=== PATIENT | female | born 1950 | race Caucasian/White ===

== ENCOUNTER 2017-01-05 08:10 | Emergency (ER) | payer OTHER ==
--- NOTE | 2017-01-05 08:43 | Emergency Department Record ---
History of Present Illness - General Chief complaint: Pain Stated complaint: RIGHT PAIN BELOW RIBS Time Seen by Provider: 01/05/17 08:28 Source: Patient Mode of Arrival: Ambulatory Limitations: No limitations - History of Present Illness Initial comments: pt awoke w ruq pain that is easing up MD Complaint: Abdominal Pain Onset/Timin -: Hour(s) Location: Right History of Same: No Quality: Stabbing Consistency: Constant Improves with: Nothing Worsens with: Exertion, Rest, Other Associated Symptoms: Other - Related Data Home Medications Medication Instructions Recorded Confirmed Last Taken Albuterol Sulfate [Proair Hfa] 1 - 2 puff IH .EVERY 4-6 HOURS PRN 01/05/1701/0501/04/17 Budesonide/Formoterol Fumarate 10.2 gm IH BID 01/05/17 01/05/17 01/04/17 [Symbicort 80-4.5 Mcg Inhaler] Lovastatin 20 mg PO DAILY 01/05/17 01/05/17 01/04/17 Allergies Allergy/AdvReac Type Severity Reaction Status Date / Time No Known Drug Allergies Allergy Verified 01/05/17 08:24 Travel Screening - Travel/Exposure Within Last 30 Days Have you traveled within the last 30 days?: No - Travel/Exposure Within Last Year Have you traveled outside the [place] in the last year?: No - Additonal Travel Details Have you been exposed to anyone with a communicable illness?: No - Travel Symptoms Symptom Screening: None Review of Systems Reviewed: No additional complaints except as noted below Constitutional: Reports: As per HPI. Denies: Chills, Fever, Malaise, Night sweats, Weakness, Weight change Eyes: Reports: As per HPI. Denies: Eye discharge, Eye pain, Photophobia, Vision change ENT: Reports: As per HPI. Denies: Congestion, Dental pain, Ear pain, Epistaxis , Hearing loss, Throat pain Respiratory: Reports: As per HPI. Denies: Cough, Dyspnea, Hemoptysis, Stridor, Wheezes Cardiovascular: Reports: As per HPI. Denies: Arrhythmia, Chest pain, Dyspnea on exertion, Edema, Murmurs, Orthopnea, Palpitations, Paroxysmal nocturnal dyspnea, Rheumatic Fever, Syncope Endocrine: Reports: As per HPI. Denies: Fatigue, Heat or cold intolerance, Polydipsia, Polyuria Gastrointestinal: Reports: As per HPI. Denies: Abdominal pain, Constipation, Diarrhea, Hematemesis, Hematochezia, Melena, Nausea, Vomiting Genitourinary: Reports: As per HPI. Denies: Abnormal menses, Discharge, Dyspareunia, Dysuria, Frequency, Hematuria, Incontinence, Retention, Urgency Musculoskeletal: Reports: As per HPI. Denies: Arthralgia, Back pain, Gout, Joint swelling, Myalgia, Neck pain Skin: Reports: As per HPI. Denies: Bruising, Change in color, Change in hair/ nails, Lesions, Pruritus, Rash Neurological: Reports: As per HPI. Denies: Abnormal gait, Confusion, Headache, Numbness, Paresthesias, Seizure, Tingling, Tremors, Vertigo, Weakness Psychiatric: Reports: As per HPI. Denies: Anxiety, Auditory hallucinations, Depression, Homicidal thoughts, Suicidal thoughts, Visual hallucinations Hematological/Lymphatic: Reports: As per HPI. Denies: Anemia, Blood Clots, Easy bleeding, Easy bruising, Swollen glands Past Medical History - SOCIAL HISTORY Smoking Status: Current every day smoker Alcohol Use: None Drug Use: None - RESPIRATORY Hx Respiratory Disorders: Yes Hx COPD: Yes - CARDIOVASCULAR Hx Cardio Disorders: No - NEURO Hx Neuro Disorders: No - GI Hx GI Disorders: No - Hx Genitourinary Disorders: No - ENDOCRINE Hx Endocrine Disorders: No - MUSCULOSKELETAL Hx Musculoskeletal Disorders: Yes Hx Arthritis: Yes - PSYCH Hx Psych Problems: No - HEMATOLOGY/ONCOLOGY Hx Hematology/Oncology Disorders: No Family Medical History Any Significant Family History?: No Physical Exam - General General Appearance: Alert, Oriented x3, Cooperative, Mild distress - Head Head exam: Normal inspection - Eye Eye exam: Normal appearance, PERRL, EOMI Pupils: Normal accommodation - ENT ENT exam: Normal exam, Mucous membranes moist, Normal external ear exam, Normal orophraynx Ear exam: Normal external inspection. negative: External canal tenderness Nasal Exam: Normal inspection. negative: Discharge, Sinus tenderness Mouth exam: Normal external inspection, Tongue normal Teeth exam: Normal inspection. negative: Dental caries Throat exam: Normal inspection. negative: Tonsillar erythema, Tonsillar exudate - Neck Neck exam: Normal inspection, Full ROM. negative: Tenderness - Respiratory Respiratory exam: Normal lung sounds bilaterally. negative: Respiratory distress - Cardiovascular Cardiovascular Exam: Regular rate, Normal rhythm, Normal heart sounds - GI/Abdominal GI/Abdominal exam: Soft, Normal bowel sounds, Tenderness - Rectal Rectal exam: Deferred - exam: Deferred - Extremities Extremities exam: Normal inspection, Full ROM, Normal capillary refill. negative: Tenderness - Back Back exam: Reports: Normal inspection, Full ROM. Denies: Muscle spasm, Rash noted, Tenderness - Neurological Neurological exam: Alert, CN II-XII intact, Normal gait, Oriented X3 - Psychiatric Psychiatric exam: Normal affect, Normal mood - Skin Skin exam: Dry, Intact, Normal color, Warm Course Vital Signs 01/05/17 08:12 Temperature 97.7 F Pulse Rate 76 Respiratory 20 Rate Blood Pressure 121/75 Pulse Ox 95 - Reevaluation(s) Reevaluation #1: 01/05/17 12:01 pts pain has resolved. ct showed a loop of bowel between l lobe of liver and abd wall Medical Decision Making - Lab Data Result diagrams: 01/05/17 08:47 01/05/17 08:47 Disposition Disposition: Discharge Clinical Impression: Abdominal pain Qualifiers: Abdominal location: right upper quadrant Qualified Code(s): R10.11 - Right upper quadrant pain Disposition: Home, Self-Care Condition: (1) Good Instructions: Acute Abdominal Pain (ED) Additional Instructions: follow up with family doctor. return sooner if worse Forms: Patient Portal Access Quality - Quality Measures Quality Measures: N/A - Blood Pressure Screening Does Patient Have Any of the Following: No Blood Pressure Classification: Pre-Hypertensive BP Reading Systolic Measurement: 121 Diastolic Measurement: 75 Screening for High Blood Pressure: < Pre-Hypertensive BP, F/U Documented > [ G8950] Pre-Hypertensive Follow-up Interventions: Follow-up with rescreen every year.
[2017-01-05 08:55] LABS: BASO % 0.1 % (0-6); EOS % 0.5 % (0-6); GRAN % 71.3 % (47-80); HEMATOCRIT 41.5 % (35.0-47.0); HEMOGLOBIN 13.4 gm/dl (11.6-16.0); LYMPH % 20.7 % (16-45); MEAN CELL VOLUME 95.4 fl (81-97); MEAN CORPUSCULAR HEMOGLOBIN 30.8 pg (27-33); MEAN CORPUSCULAR HGB CONC 32.3 g/dl (32-36); MEAN PLATELET VOLUME 9.4 fl (7.4-10.4); MONO % 7.4 % (0-9); PLATELET COUNT 225 K/uL (130-400); RED BLOOD COUNT 4.35 M/uL (3.80-5.40); WHITE BLOOD COUNT W/O DIFF 8.1 K/uL (4.2-12.2)
[2017-01-05 08:57] LABS: URINE APPEARANCE CLEAR; URINE BILIRUBIN NEGATIVE (NEGATIVE); URINE BLOOD NEGATIVE (NEGATIVE); URINE COLOR YELLOW; URINE GLUCOSE (UA) NEGATIVE (NEGATIVE); URINE KETONE NEGATIVE (NEGATIVE); URINE LEUKOCYTE ESTERASE NEGATIVE (NEGATIVE); URINE NITRITE NEGATIVE (NEGATIVE); URINE PROTEIN NEGATIVE (NEGATIVE); URINE UROBILINOGEN 0.2 E.U./dL (0.20 - 1.00)
[2017-01-05] MEDS: 0.9 % SODIUM CHLORIDE 1,000 ML BAG IV ONE (08:58)
[2017-01-05 09:09] LABS: ALB/GLOB RATIO 1.7 (1.1-1.8); ALBUMIN 4.4 gm/dL (3.5-5.0); ALKALINE PHOSPHATASE 62 U/L (38-126); ALT/SGPT 39 U/L (9-52); ANION GAP 6.2 (7-16); AST/SGOT 36 U/L (14-36); BILIRUBIN,TOTAL 0.56 mg/dL (0.2-1.3); BLOOD UREA NITROGEN 16 mg/dL (7-17); CARBON DIOXIDE 30.8 mmol/L (22-30); CREATININE 0.9 mg/dL (0.52-1.04); EST GLOMERULAR FILTRATION RATE > 60 ml/min; GLUCOSE,RANDOM 104 mg/dL (70-110); LIPASE 79 U/L (23-300)
--- NOTE | 2017-01-05 10:05 | Emergency Department Record ---
History of Present Illness - General Chief complaint: Pain Stated complaint: RIGHT PAIN BELOW RIBS Time Seen by Provider: 01/05/17 08:28 Source: Patient Mode of Arrival: Ambulatory Limitations: No limitations - History of Present Illness Onset/Timin -: Hour(s) Location: Right History of Same: No Quality: Stabbing Consistency: Constant Improves with: Nothing Worsens with: Exertion, Rest, Other Associated Symptoms: Other - Related Data Home Medications Medication Instructions Recorded Confirmed Last Taken Albuterol Sulfate [Proair Hfa] 1 - 2 puff IH .EVERY 4-6 HOURS PRN 01/05/1701/0501/04/17 Budesonide/Formoterol Fumarate 10.2 gm IH BID 01/05/17 01/05/17 01/04/17 [Symbicort 80-4.5 Mcg Inhaler] Lovastatin 20 mg PO DAILY 01/05/17 01/05/17 01/04/17 Allergies Allergy/AdvReac Type Severity Reaction Status Date / Time No Known Drug Allergies Allergy Verified 01/05/17 08:24 Travel Screening - Travel/Exposure Within Last 30 Days Have you traveled within the last 30 days?: No - Travel/Exposure Within Last Year Have you traveled outside the [place] in the last year?: No - Additonal Travel Details Have you been exposed to anyone with a communicable illness?: No - Travel Symptoms Symptom Screening: None Review of Systems Constitutional: Reports: As per HPI. Denies: Chills, Fever, Malaise, Night sweats, Weakness, Weight change Eyes: Reports: As per HPI. Denies: Eye discharge, Eye pain, Photophobia, Vision change ENT: Reports: As per HPI. Denies: Congestion, Dental pain, Ear pain, Epistaxis , Hearing loss, Throat pain Respiratory: Reports: As per HPI. Denies: Cough, Dyspnea, Hemoptysis, Stridor, Wheezes Cardiovascular: Reports: As per HPI. Denies: Arrhythmia, Chest pain, Dyspnea on exertion, Edema, Murmurs, Orthopnea, Palpitations, Paroxysmal nocturnal dyspnea, Rheumatic Fever, Syncope Endocrine: Reports: As per HPI. Denies: Fatigue, Heat or cold intolerance, Polydipsia, Polyuria Gastrointestinal: Reports: As per HPI. Denies: Abdominal pain, Constipation, Diarrhea, Hematemesis, Hematochezia, Melena, Nausea, Vomiting Genitourinary: Reports: As per HPI. Denies: Abnormal menses, Discharge, Dyspareunia, Dysuria, Frequency, Hematuria, Incontinence, Retention, Urgency Musculoskeletal: Reports: As per HPI. Denies: Arthralgia, Back pain, Gout, Joint swelling, Myalgia, Neck pain Skin: Reports: As per HPI. Denies: Bruising, Change in color, Change in hair/ nails, Lesions, Pruritus, Rash Neurological: Reports: As per HPI. Denies: Abnormal gait, Confusion, Headache, Numbness, Paresthesias, Seizure, Tingling, Tremors, Vertigo, Weakness Psychiatric: Reports: As per HPI. Denies: Anxiety, Auditory hallucinations, Depression, Homicidal thoughts, Suicidal thoughts, Visual hallucinations Hematological/Lymphatic: Reports: As per HPI. Denies: Anemia, Blood Clots, Easy bleeding, Easy bruising, Swollen glands Past Medical History - SOCIAL HISTORY Smoking Status: Current every day smoker Alcohol Use: None Drug Use: None - RESPIRATORY Hx Respiratory Disorders: Yes Hx COPD: Yes - CARDIOVASCULAR Hx Cardio Disorders: No - NEURO Hx Neuro Disorders: No - GI Hx GI Disorders: No - Hx Genitourinary Disorders: No - ENDOCRINE Hx Endocrine Disorders: No - MUSCULOSKELETAL Hx Musculoskeletal Disorders: Yes Hx Arthritis: Yes - PSYCH Hx Psych Problems: No - HEMATOLOGY/ONCOLOGY Hx Hematology/Oncology Disorders: No Family Medical History Any Significant Family History?: No Physical Exam - General Limitations: No limitations Course Vital Signs 01/05/17 01/05/17 08:12 09:32 Temperature 97.7 F Pulse Rate 76 Pulse Rate [ 78 Pulse Ox Probe] Respiratory 20 16 Rate Blood Pressure 121/75 Blood Pressure 123/81 [Left Arm] Pulse Ox 95 94 L Medical Decision Making - Lab Data Result diagrams: 01/05/17 08:47 01/05/17 08:47 Lab Results 01/05/17 01/05/17 01/05/17 Range/Units 08:47 08:47 08:47 WBC 8.1 (4.2-12.2) K/uL RBC 4.35 (3.80-5.40) M/uL Hgb 13.4 (11.6-16.0) gm/dl Hct 41.5 (35.0-47.0) % MCV 95.4 (81-97) fl MCH 30.8 (27-33) pg MCHC 32.3 (32-36) g/dl RDW 14.0 (11.5-14.5) % Plt Count 225 (130-400) K/uL MPV 9.4 (7.4-10.4) fl Gran % 71.3 (47-80) % Lymphocytes % 20.7 (16-45) % Monocytes % 7.4 (0-9) % Eosinophils % 0.5 (0-6) % Basophils % 0.1 (0-6) % D-Dimer 0.25 (0-0.59) mg/L FEU Sodium 140 (136-145) mmol/L Potassium 4.5 (3.5-5.1) mmol/L Chloride 103 (98-107) mmol/L Carbon Dioxide 30.8 H (22-30) mmol/L Anion Gap 6.2 L (7-16) BUN 16 (7-17) mg/dL Creatinine 0.9 (0.52-1.04) mg/dL Estimated GFR > 60 ml/min Random Glucose 104 (70-110) mg/dL Calcium 8.7 (8.5-10.1) mg/dL Total Bilirubin 0.56 (0.2-1.3) mg/dL AST 36 (14-36) U/L ALT 39 (9-52) U/L Alkaline Phosphatase 62 (38-126) U/L Total Protein 7.0 (6.3-8.2) gm/dL Albumin 4.4 (3.5-5.0) gm/dL Globulin 2.6 (1.4-4.8) gm/dL Albumin/Globulin Ratio 1.7 (1.1-1.8) Lipase 79 (23-300) U/L Urine Color Urine Appearance Urine pH (5.0-8.0) Ur Specific [place] (1.002-1.030) Urine Protein (NEGATIVE) Urine Glucose (UA) (NEGATIVE) Urine Ketones (NEGATIVE) Urine Blood (NEGATIVE) Urine Nitrite (NEGATIVE) Urine Bilirubin (NEGATIVE) Urine Urobilinogen (0.20 - 1.00) E.U./dL Ur Leukocyte Esterase (NEGATIVE) 01/05/17 Range/Units 08:50 WBC (4.2-12.2) K/uL RBC (3.80-5.40) M/uL Hgb (11.6-16.0) gm/dl Hct (35.0-47.0) % MCV (81-97) fl MCH (27-33) pg MCHC (32-36) g/dl RDW (11.5-14.5) % Plt Count (130-400) K/uL MPV (7.4-10.4) fl Gran % (47-80) % Lymphocytes % (16-45) % Monocytes % (0-9) % Eosinophils % (0-6) % Basophils % (0-6) % D-Dimer (0-0.59) mg/L FEU Sodium (136-145) mmol/L Potassium (3.5-5.1) mmol/L Chloride (98-107) mmol/L Carbon Dioxide (22-30) mmol/L Anion Gap (7-16) BUN (7-17) mg/dL Creatinine (0.52-1.04) mg/dL Estimated GFR ml/min Random Glucose (70-110) mg/dL Calcium (8.5-10.1) mg/dL Total Bilirubin (0.2-1.3) mg/dL AST (14-36) U/L ALT (9-52) U/L Alkaline Phosphatase (38-126) U/L Total Protein (6.3-8.2) gm/dL Albumin (3.5-5.0) gm/dL Globulin (1.4-4.8) gm/dL Albumin/Globulin Ratio (1.1-1.8) Lipase (23-300) U/L Urine Color Yellow Urine Appearance Clear Urine pH 5.5 (5.0-8.0) Ur Specific [place] >= 1.030 (1.002-1.030) Urine Protein Negative (NEGATIVE) Urine Glucose (UA) Negative (NEGATIVE) Urine Ketones Negative (NEGATIVE) Urine Blood Negative (NEGATIVE) Urine Nitrite Negative (NEGATIVE) Urine Bilirubin Negative (NEGATIVE) Urine Urobilinogen 0.2 (0.20 - 1.00) E.U./dL Ur Leukocyte Esterase Negative (NEGATIVE) Disposition Disposition: Other Condition: (1) Good Additional Instructions: Forms: Patient Portal Access Quality - Blood Pressure Screening Does Patient Have Any of the Following: No Blood Pressure Classification: Pre-Hypertensive BP Reading Systolic Measurement: 121 Diastolic Measurement: 75 Screening for High Blood Pressure: < Pre-Hypertensive BP, F/U Documented > [ H6280]
--- NOTE | 2017-01-06 08:05 | CT SCAN REPORT ---
EXAM: CT SCAN OF THE ABDOMEN AND PELVIS HISTORY: PATIENT HAS RIGHT UPPER QUADRANT PAIN. TECHNIQUE: Serial axial CT scan of the abdomen and pelvis was performed at 3.75 mm intervals from the dome of the diaphragm down to the pubic symphysis following the intravenous administration of 100 ml of Omnipaque 300. Oral contrast was also administered. Comparison: CT scan of the lumbar spine dated 04/12/13 is provided. FINDINGS: The lung windows of the lung bases demonstrate no CT evidence of a focal infiltrate or pleural effusion. Large pleural based bulla are identified within the medial aspect of the right lower lobe. The visualized heart size and contour is within normal limits. The liver, spleen, bilateral adrenal glands, pancreas, and gallbladder are unremarkable. There is no CT evidence of hydronephrosis or hydroureter. No renal or ureteral calculi are noted. The contour, caliber, and flow within the abdominal aorta is within normal limits. There is no CT evidence of retroperitoneal, pelvic, or inguinal lymphadenopathy. The bowel gas pattern is nonspecific and nonobstructive. There is no CT evidence of free intraperitoneal air or free intraperitoneal fluid. The appendix is clearly visualized and there is no CT evidence of appendicitis. Incidental note is made of colonic interposition between the anterior aspect of the left hepatic lobe and the anterior abdominal wall. The urinary bladder is unremarkable. The uterus is absent. Bone windows demonstrate no CT evidence of a fracture or dislocation of the visualized osseous structures of the abdomen and pelvis. Degenerative disk disease of the lower lumbar spine is noted. IMPRESSION: 1. NO CT EVIDENCE OF AN ACUTE INTRAABDOMINAL PROCESS. 2. COLONIC INTERPOSITION BETWEEN THE LEFT HEPATIC LOBE AND THE ANTERIOR ABDOMINAL WALL IS NOTED. THIS MAY BE CREATING THE PATIENT'S SYMPTOMS. CLINICAL CORRELATION IS RECOMMENDED. JOB NUMBER: [id number] [facility]
== END 2017-01-05 12:09 | disposition home or self-care (01) ==
LOC: ER 08:10
DX: R10.11 Right upper quadrant pain (principal); R07.81 Pleurodynia; R11.0 Nausea
CPT/HCPCS: 99284 ×2; 83690; 85025; 80053; 81003; 85379; 74177; Q9967; J7030

== ENCOUNTER 2017-06-02 07:58 | Day surgery (SDC) | payer OTHER ==
[2017-06-02] MEDS ORDERED: EPHEDRINE SULFATE 50 MG/ML ML IV ONE (07:59)
[2017-06-02] MEDS ORDERED: PROPOFOL 10 MG/ML VIAL IV ONE (07:59)
[2017-06-02] MEDS ORDERED: NALOXONE 0.4 MG/1 ML VIAL IVP ONE (07:59)
[2017-06-02] MEDS ORDERED: FENTANYL PF 100MCG/2ML VIAL IV ONE (07:59)
[2017-06-02] MEDS ORDERED: LIDOCAINE 2% MDV (20MG/ML) 20ML VIAL IV ONE (07:59)
--- NOTE | 2017-06-05 08:51 | Operative Note ---
DATE OF SURGERY: 06/02/2017 SURGEON: Wolf Gutierrez MD OPERATION: ESOPHAGOGASTRODUODENOSCOPY. INDICATIONS: This is a 66-year-old female with history of epigastric pain who presented for esophagogastroduodenoscopy. POSTOPERATIVE DIAGNOSES: 1. Normal esophagus. 2. Mild gastritis. 3. Normal duodenum. ANESTHESIA: Sedation is per Anesthesia. Pulse oximetry was monitored throughout the procedure to maintain O2 saturation of 90% or greater. Supplemental oxygen was administered via nasal cannula. Cardiac and vital signs were monitored throughout the duration of the procedure, and they were stable. The procedure of esophagogastroduodenoscopy and risks and benefits of the procedure, including the risk of bleeding and perforation, among others, were explained to the patient who voiced understanding and agreed to have the procedure done. Physical examination was performed, and the patient was found stable for sedation. PROCEDURE: The patient was placed in the left lateral position. Sedation was initiated. A plastic bite block was inserted into the oral cavity. The Olympus [id number] gastroscope was introduced into the oral cavity and advanced to the proximal esophagus without difficulty. The esophageal mucosa was carefully examined upon introduction of the gastroscope. The proximal and mid and distal esophageal mucosa appeared normal. The gastroscope was then advanced into the stomach, and surveillance of the stomach revealed normal gastric fundus but diffuse erythema along the gastric body and antrum with erosions but no ulcers were noted. The gastroscope was then advanced to the descending duodenum without difficulty. The duodenal bulb and descending duodenum appeared normal. The gastroscope was then withdrawn into the stomach and retroflexion was performed. There were no other lesions noted. The gastroscope was then straightened and withdrawn while carefully examining the gastric and esophageal mucosa. No other lesions noted. Multiple duodenal and gastric biopsies were obtained. The patient remained with stable vital signs and was transferred to the recovery room. RECOMMENDATIONS: 1. The patient should continue on her proton pump inhibitors. 2. I would be happy to see her back in the office as needed. Thank you for allowing me to participate in the care of your patient. CC: Dr. Freddy CADENA
== END 2017-06-02 11:00 | disposition home or self-care (01) ==
LOC: HOP 07:58
PROVIDERS: ATTEND Internal Medicine Gastroenterology
DX: R10.13 Epigastric pain (principal); K29.70 Gastritis, unspecified, without bleeding; J44.9 Chronic obstructive pulmonary disease, unspecified
CPT/HCPCS: 43235; 00731; J3010; J2310

== ENCOUNTER 2017-10-16 09:38 | Day surgery (SDC) | payer MEDICARE, OTHER ==
[~2017-10-16 09:38] MED LIST: ACETAMINOPHEN 1,000 MG/100 ML BTL IV ONE; FAMOTIDINE 20MG TABLET PO ONE; MECLIZINE 25 MG TABLET PO ONE; METOCLOPRAMIDE 10 MG TABLET PO ONE
[2017-10-16] MEDS ORDERED: FLUMAZENIL 1MG/10ML VIAL IV ONE (09:39)
[2017-10-16] MEDS ORDERED: LIDOCAINE 2% MDV (20MG/ML) 20ML VIAL IV ONE (09:39)
[2017-10-16] MEDS ORDERED: BUPIVACAINE 0.25% W/EPI MPF 30ML VIAL IVP ONE (09:39)
[2017-10-16] MEDS ORDERED: ROCURONIUM BROMIDE 50MG/5ML VIAL IV ONE (09:39)
[2017-10-16] MEDS ORDERED: DEXAMETHASONE 4 MG/ML 1ML VIAL IVP ONE (09:39)
[2017-10-16] MEDS ORDERED: GLYCOPYRROLATE 0.2 MG/ML ML IV ONE (09:39)
[2017-10-16] MEDS ORDERED: SEVOFLURANE 250 ML INH ONE (09:39)
[2017-10-16] MEDS ORDERED: MIDAZOLAM HCL 2MG/2ML VIAL IV ONE (09:39)
[2017-10-16] MEDS ORDERED: NALOXONE 0.4 MG/1 ML VIAL IVP ONE ×2 (09:39)
[2017-10-16] MEDS ORDERED: SUCCINYLCHOLINE 20 MG/ML 10ML IVP ONE (09:39)
[2017-10-16] MEDS ORDERED: HYDROMORPHONE HCL 2 MG/ML VIAL IV ONE (09:39)
[2017-10-16] MEDS ORDERED: SCOPOLAMINE 1 PATCH TDSY TD ONE (09:39)
[2017-10-16] MEDS ORDERED: ONDANSETRON HCL IV 4 MG/2 ML VIAL IVP ONE (09:39)
[2017-10-16 10:26] LABS: BASO % 0.4 % (0-6); EOS % 1.1 % (0-6); HEMOGLOBIN 11.4 gm/dl (11.6-16.0); LYMPH % 18.8 % (16-45); MEAN CELL VOLUME 90.9 fl (81-97); MONO % 6.7 % (0-9); PLATELET COUNT 306 K/uL (130-400); RED BLOOD COUNT 4.18 M/uL (3.80-5.40); RED CELL DISTRIBUTION WIDTH 16.6 % (11.5-14.5); WHITE BLOOD COUNT W/O DIFF 8.2 K/uL (4.2-12.2)
[2017-10-16 10:31] LABS: MEAN CORPUSCULAR HEMOGLOBIN 27.2 pg (27-33)
[2017-10-16 10:44] LABS: BLOOD UREA NITROGEN 13 mg/dL (8-23); CREATININE 0.8 mg/dL (0.5-0.9); EST GLOMERULAR FILTRATION RATE > 60 mL/min; GLUCOSE,RANDOM 102 mg/dL (74-109)
[2017-10-16] MEDS ORDERED: ALBUTEROL SULFATE (0.083%) 2.5 MG/3 ML NEB INH ONE (13:42)
--- NOTE | 2017-10-16 14:50 | Operative Note ---
DATE OF SURGERY: 10/16/2017 Surgeon: Chris Navas DO PREOPERATIVE DIAGNOSIS: Cholelithiasis with chronic cholecystitis. POSTOPERATIVE DIAGNOSIS: Cholelithiasis with chronic cholecystitis. OPERATION: Laparoscopic cholecystectomy. Indication: The patient is a 66-year-old female who is having ongoing right subcostal postprandial pain. Workup including ultrasound did reveal cholelithiasis with findings consistent with clinical history of recurrent biliary colic. We did discuss cholecystectomy versus medical management. She desired surgical intervention. Risks include but are not limited to bleeding, infection, ductal injury, possible conversion to open, postoperative bile leak. She understood this fully. PROCEDURE: Thereafter, consent was signed and questions answered. She was taken to the operating room and placed in a supine position. General anesthesia was administered per the department of anesthesia. The patient's abdomen was prepped and draped in the usual sterile fashion. The infraumbilical region was anesthetized with a total of 2 mL of 0.25% Sensorcaine with epinephrine. A 2 cm infraumbilical incision was made. This was carried down to the anterior rectus fascia. This was incised. Sandor clamps were placed on the fascial edges and brought up into the wound. Stay sutures of 0 Vicryl were placed. Posterior rectus sheath was identified and incised. The peritoneal cavity was entered bluntly. At this time, a 10 mm blunt Reg port was placed. Adequate pneumoperitoneum was established. Under direct visualization, additional 5 mm epigastric and two 5 mm right subcostal ports were placed. The gallbladder was identified. It was retracted in cephalad and lateral direction opening up the angle of [place]. The hepatocystic triangle was thoroughly dissected out. The distal half of the gallbladder was released from the cystic plate elongating our retroductal window. The cystic duct and cystic artery were clearly identified. Due to the paucity of visceral fat, I could clearly see the common bile duct and common hepatic duct medial. We had excellent critical view of safety. The cystic duct and cystic artery were doubly clipped and cut in a standard fashion. Gallbladder was then taken off the liver bed with Chandan harmonic. This was extracted through the umbilical port. Right upper quadrant was rechecked and found to be hemostatic. No bleeding. No bile leak. No bowel injury noted. The patient was leveled out. The pneumoperitoneum was released. All ports were removed. The fascia was closed with 0 Vicryl in a [id number] fashion. The skin at all ports was closed with 4-0 Vicryl. The patient was taken to the recovery room in satisfactory condition. FINDINGS AT THE TIME OF SURGERY: Chronic cholecystitis. CC: DO TAMMI Landin
[2017-10-16] MEDS: IPRATROPIUM/ALBUTEROL (0.5MG/3MG) NEB INH PRN (18:00)
[2017-10-16] MEDS ORDERED: PROMETHAZINE HCL 25 MG in 0.9 % SODIUM CHLORIDE 100ML 100 ML IVPB PRN (18:30)
--- NOTE | 2017-10-16 19:10 | Consult ---
Consult Order Detail - Reason for Consult Consult Date: 10/16/17 - Chief Complaint Chief Complaint: Acute Respiratory Distress HPI Consult - History of Present Illness Admitting Diagnosis: Chronic choleycystitis History of Present Illness: Mrs. Salinas is a 66 y/o female admitted for planned cholecystectomy who began to have respiratory distress pos-operatively. The patient had an uneventful procedure and was in pos-operative observation when she was observed to be quite drowsy and lethargic. after being unarousable and vomiting the patient was given doses of Narcan however she still remained somnolent and oxygen saturations remained in the 80's. The patient was put on 2 liters nasal cannula oxygen and started on respiratory therapy with bronchodilators and inhaled corticosteroids. The patient reports a 40+ pack/year smoking history and COPD. She uses Symbicort twice daily and has an albuterol rescue inhale which she uses infrequently. She does not use supplemental oxygen at home and has not been hospitalized for exacerbations in the past. On examination this morning the patient is awake, alert and oriented, sitting up in bed with saturations maintained at 91-92% on 2 liters NC. Chest xray completed yesterday is negative for pneumonia and only shows changes consistent with COPD. Medicine Service has been consulted to manage the patient's acute on chronic COPD exacerbation. Past Medical History - SOCIAL HISTORY Smoking Status: Current every day smoker Alcohol Use: None - RESPIRATORY Hx Respiratory Disorders: Yes Hx Bronchitis: Yes ( seen in ER low O2 SATS) Hx COPD: Yes (good control with inhalers) Hx Dyspnea: Yes Hx Pneumonia: Yes - CARDIOVASCULAR Hx Cardio Disorders: No - NEURO Hx Neuro Disorders: No - GI Hx GI Disorders: Yes Hx Abdominal Pain: Yes Hx Reflux: Yes Hx Wt Loss/Wt Gain: Yes (15 # wt loss over last 2 yrs) Hx of Polyps: Yes - Hx Genitourinary Disorders: No Comment:: s/p hyst - ENDOCRINE Hx Endocrine Disorders: No - MUSCULOSKELETAL Hx Musculoskeletal Disorders: Yes Hx Arthritis: Yes - PSYCH Hx Psych Problems: No - HEMATOLOGY/ONCOLOGY Hx Hematology/Oncology Disorders: No Family Medical History Hx Dementia: Father Hx Diabetes: Mother Hx Heart Disease: Father, Mother Hx HTN: Mother Hx Kidney Disease: Father, Mother H&P Meds - Home Medications and Allergies Home Medications Medication Instructions Recorded Confirmed Last Taken Omeprazole 40 mg PO DAILY 10/16/17 10/16/17 Unknown Allergies Allergy/AdvReac Type Severity Reaction Status Date / Time No Known Drug Allergies Allergy Verified 01/05/17 08:24 Physical Exam - Vital Signs Vital Signs: Vital Signs - Last 24 Hrs Temp Pulse Pulse Resp BP Pulse Ox 10/16/17 18:02 56 L 16 94 L 10/16/17 17:00 97.5 F L 62 18 116/63 92 L 10/16/17 13:44 88 16 90 L - General General Appearance: Alert, Oriented x3, Cooperative, No acute distress - Head Head exam: Normal inspection Head exam detail: negative: Abrasion, Contusion - Respiratory Respiratory exam: Prolonged expiratory, Wheezes. negative: Accessory muscle use , Respiratory distress, Rhonchi, Stridor - Cardiovascular Cardiovascular Exam: Regular rate, Normal rhythm, Normal heart sounds Peripheral Pulses: 3+: Radial (R), Radial (L), Dorsalis Pedis (R), Dorsalis Pedis (L) - GI/Abdominal GI/Abdominal exam: Soft, Normal bowel sounds. negative: Tenderness - Extremities Extremities exam: Normal inspection, Full ROM, Normal capillary refill. negative: Tenderness - Neurological Neurological exam: Alert, Normal gait, Oriented X3, Reflexes normal - Psychiatric Psychiatric exam: Normal affect, Normal mood Results - Labs Result Diagrams: 10/17/17 06:15 10/17/17 06:15 Labs Last 24 Hours: Laboratory Results - last 24 hr 10/16/17 10/16/17 10:14 10:14 WBC 8.2 RBC 4.18 Hgb 11.4 L Hct 38.0 MCV 90.9 MCH 27.2 MCHC 30.0 L RDW 16.6 H Plt Count 306 MPV 9.0 Gran % 73.0 Lymphocytes % 18.8 Monocytes % 6.7 Eosinophils % 1.1 Basophils % 0.4 Sodium 144 Potassium 4.2 Chloride 101 Carbon Dioxide 31.0 H Anion Gap 12.0 BUN 13 Creatinine 0.8 Estimated GFR > 60 Random Glucose 102 Calcium 8.9 Assessment and Plan - Assessment and Plan (1) Respiratory distress Current Visit: Yes Status: Acute Base Code: R06.03 - ACUTE RESPIRATORY DISTRESS Comment: - post-operative respiratory distress, aenesthetic drug induced. - resolved - CXR - negative for infiltrate/opacities. Chronic changes noted. Labs are within normal limits. - titrate to keep O2 sats > 90% (2) COPD with exacerbation Current Visit: Yes Status: Acute Base Code: J44.1 - CHRONIC OBSTRUCTIVE PULMONARY DISEASE W (ACUTE) EXACERBATION Comment: - 40+pk/yr smoking history. Quit smoking 1 week prior to surgery. - cxr: changes consistent with COPD. No opacities/infiltrates. - titrate oxygen to maintain sats > 90% on 2 liters oxygen, currently @ 91 % while sitting. Walk patient to establish ambulatory - respiratory therapy duonebs Q6H, albuterol Q4H - Disposition Disposition: Patient able to be discharged if maintaining saturations off oxygen. Medicine will signoff at this point. Further management as per surgical team. Thanks for the consult. Please call if any questions or concerns.
[2017-10-16] MEDS ORDERED: HYDROCODONE/APAP 7.5/325MG TABLET PO PRN (22:30)
[2017-10-16] MEDS ORDERED: HYDROCODONE/APAP 5/325MG TABLET PO PRN (22:32)
[2017-10-17 06:40] LABS: GRAN % 70.2 % (47-80); HEMATOCRIT 34.5 % (35.0-47.0); HEMOGLOBIN 10.1 gm/dl (11.6-16.0); LYMPH % 21.6 % (16-45); MEAN CELL VOLUME 91.8 fl (81-97); MEAN CORPUSCULAR HGB CONC 29.3 g/dl (32-36); MEAN PLATELET VOLUME 9.4 fl (7.4-10.4); MONO % 8.2 % (0-9); PLATELET COUNT 263 K/uL (130-400); RED BLOOD COUNT 3.76 M/uL (3.80-5.40); RED CELL DISTRIBUTION WIDTH 16.4 % (11.5-14.5); WHITE BLOOD COUNT W/O DIFF 6.3 K/uL (4.2-12.2)
[2017-10-17 06:41] LABS: MEAN CORPUSCULAR HEMOGLOBIN 26.8 pg (27-33)
[2017-10-17 06:58] LABS: BLOOD UREA NITROGEN 10 mg/dL (8-23); CREATININE 0.7 mg/dL (0.5-0.9); EST GLOMERULAR FILTRATION RATE > 60 mL/min; GLUCOSE,RANDOM 108 mg/dL (74-109)
[2017-10-17] MEDS: IPRATROPIUM/ALBUTEROL (0.5MG/3MG) NEB INH PRN ×2 (07:29→15:00)
--- NOTE | 2017-10-17 07:44 | RADIOLOGY REPORT ---
EXAM: CHEST, SINGLE VIEW HISTORY: HYPOXIA, POSTOP. TECHNIQUE: AP portable upright view of the chest was obtained. Comparison: Lung bases from CT of the abdomen 01/05/17. FINDINGS: The lung volumes are increased. Again noted are pleural blebs in the lung bases. No air space disease. There are a few linear bands of opacity in both lung bases. Bilateral pleural thickening again seen. No pleural effusion or pneumothorax. The cardiomediastinal silhouette is within normal limits. The bony structures are unremarkable. IMPRESSION: FINDINGS OF COPD. NO ACUTE ABNORMALITIES IDENTIFIED. THERE IS MINIMAL BIBASILAR ATELECTASIS. JOB [facility]BER: [id number] [facility]
--- NOTE | 2017-10-23 13:20 | Discharge Summary ---
DATE OF ADMISSION: 10/16/2017 DATE OF DISCHARGE: 10/17/2017 ADMITTING DIAGNOSIS: Cholecystitis. DISCHARGE DIAGNOSES: 1. Cholecystitis. 2. Hypoxia. HOSPITAL COURSE: The patient is a 66-year-old female who underwent uneventful laparoscopic cholecystectomy. She was noted to be somewhat hypoxic postoperatively. She was admitted for observation and internal medicine consultation. She was placed on breathing treatments as well as oxygen. She did improve overnight. Chest x-ray was done which reviewed was normal. The next day she was much improved. Her biox was normal. She was on a regular diet and her pain was controlled. Therefore, she was discharged home in stable condition. She was given instructions to follow up with me in about 2 weeks, to see her primary care doctor and call with any issues. TAMMI
== END 2017-10-17 16:10 | disposition home or self-care (01) ==
LOC: SUR 09:38 → MEDSURG 17:12 → SUR 10-17 16:10
PROVIDERS: ATTEND Surgery
DX: K80.10 Calculus of gallbladder with chronic cholecystitis without obstruction (principal); E78.00 Pure hypercholesterolemia, unspecified; K21.9 Gastro-esophageal reflux disease without esophagitis; J44.9 Chronic obstructive pulmonary disease, unspecified
CPT/HCPCS: 71045; 80048; 85025; 94620; 94640; 94761; J0330; J2310; J2405

== ENCOUNTER 2019-01-04 04:01 | Inpatient (IN) | payer MEDICARE ==
[2019-01-04] MEDS ORDERED: IPRATROPIUM/ALBUTEROL (0.5MG/3MG) NEB INH ONE (04:03)
[2019-01-04] MEDS ORDERED: 0.9 % SODIUM CHLORIDE 1,000 ML BAG IV ONE (04:03)
[2019-01-04] MEDS ORDERED: CEFTRIAXONE 1GM/50ML BAG 1 GM/50 ML BAG IVPB ONE (04:03)
--- NOTE | 2019-01-04 04:09 | Emergency Department Record ---
History of Present Illness - General Chief Complaint: Shortness of breath Stated Complaint: REBEKAH Time Seen by Provider: 01/04/19 04:02 Source: Patient, EMS Mode of Arrival: EMS Limitations: No limitations - History of Present Illness Initial Comments: 68 yo female presents with shortness of breath. She is smoker with COPD. She is normally on 2 liters NC. She was found hypoxic at 87% by EMS. She denies fever or chest pain. No edema. Prehospital she was given Solumedrol and Duoneb with improvement of her saturations but not work of breathing. She does not think she has be on BiPap in the past. Dr Moser is her PCP. Chest CT March of 2018 demonstrated hyperinflation with emphysema. She has minimally productive sputum. MD Complaint: Cough, Shortness of breath -: Days(s) (1) Severity: Moderate Quality: Other Consistency: Constant Improves With: Nothing Worsens With: Coughing Known History Of: COPD - Related Data Allergies Allergy/AdvReac Type Severity Reaction Status Date / Time No Known Drug Allergies Allergy Unverified 07/13/18 07:27 Review of Systems Constitutional: Reports: Weakness. Denies: Chills, Fever Eyes: Denies: Eye discharge ENT: Denies: Congestion, Ear pain, Epistaxis, Throat pain Respiratory: Reports: Cough, Dyspnea, Wheezes. Denies: Hemoptysis Cardiovascular: Denies: Chest pain, Edema, Palpitations, Syncope Endocrine: Denies: Fatigue, Polydipsia, Polyuria Gastrointestinal: Denies: Abdominal pain, Diarrhea, Nausea, Vomiting Genitourinary: Denies: Dysuria, Urgency Musculoskeletal: Denies: Arthralgia, Back pain, Joint swelling, Myalgia, Neck pain Neurological: Denies: Confusion, Headache Psychiatric: Denies: Anxiety Hematological/Lymphatic: Denies: Easy bleeding, Easy bruising Past Medical History - SOCIAL HISTORY Smoking Status: Current every day smoker - RESPIRATORY Hx Respiratory Disorders: Yes Hx Bronchitis: Yes ( seen in ER low O2 SATS) Hx COPD: Yes (good control with inhalers) Hx Dyspnea: Yes Hx Pneumonia: Yes - CARDIOVASCULAR Hx Cardio Disorders: No - NEURO Hx Neuro Disorders: No - GI Hx GI Disorders: Yes Hx Abdominal Pain: Yes Hx Reflux: Yes Hx Wt Loss/Wt Gain: Yes (15 # wt loss over last 2 yrs) Hx of Polyps: Yes - Hx Genitourinary Disorders: No Comment:: s/p hyst - ENDOCRINE Hx Endocrine Disorders: No - MUSCULOSKELETAL Hx Musculoskeletal Disorders: Yes Hx Arthritis: Yes - PSYCH Hx Psych Problems: No - HEMATOLOGY/ONCOLOGY Hx Hematology/Oncology Disorders: No Family Medical History Hx Dementia: Father Hx Diabetes: Mother Hx Heart Disease: Father, Mother Hx HTN: Mother Hx Kidney Disease: Father, Mother Physical Exam - General General Appearance: Alert, Oriented x3, Cooperative, Other (Increased work of breathing) Limitations: No limitations - Head Head exam: Atraumatic, Normal inspection - Eye Eye exam: Normal appearance. negative: Conjunctival injection - ENT ENT exam: Normal exam, Mucous membranes moist Ear exam: Normal external inspection Nasal Exam: Normal inspection Mouth exam: Normal external inspection - Neck Neck exam: Normal inspection - Respiratory Respiratory exam: Accessory muscle use, Decreased breath sounds, Prolonged expiratory, Respiratory distress (increased work of breathing, conversational dyspnea), Rhonchi, Wheezes. negative: Normal lung sounds bilaterally - Cardiovascular Cardiovascular Exam: Regular rate, Normal rhythm, Normal heart sounds Peripheral Pulses: 2+: Radial (R), Radial (L) - GI/Abdominal GI/Abdominal exam: Soft. negative: Tenderness - Rectal Rectal exam: Deferred - exam: Deferred - Extremities Extremities exam: Normal inspection. negative: Pedal edema, Tenderness - Back Back exam: Denies: CVA tenderness (R), CVA tenderness (L) - Neurological Neurological exam: Alert, Oriented X3 - Psychiatric Psychiatric exam: Anxious. negative: Agitated - Skin Skin exam: Dry, Intact, Normal color, Warm Course - Reevaluation(s) Reevaluation #1: The patient was seen at the bedside on arrival Given her work of breathing R/T initiated Bipap 01/04/19 04:10 01/04/19 04:19 She is tolerating BiPap at this time still with increased work of breathing but not fatiguing ABG ordered. 01/04/19 04:26 ABG pH 7.18 pCO2 87.9 pO2 122 CO 3.6 EKG #1: 04:22 Rate: 95 Rhythm: Sinus [place]: Normal Intervals: Normal ST segments: poor R wave progression, no acute ST changes. 01/04/19 04:30 On recheck the patient is doing better. Her RR has decreased from 35 to 24. Her work of breathing is significantly improved. She subjectively feels improved. Saturation 96% The plan is to recheck an ABG to assess for improvement 01/04/19 04:36 01/04/19 04:50 The CMP was reviewed. No acute changes The Tropoin was normal 01/04/19 05:13 The ABG improved pH now 7.26 pCO2 decreased from 87.9 to 71 Clinically her work of breathing is greatly improved with RR now 15 She is now resting comfortably on BiPap stable for admission with improved ABG, vitals and work of breathing 01/04/19 06:53 The case was discussed with Dr Moore for admission Medical Decision Making - Lab Data Result diagrams: 01/04/19 04:15 01/04/19 04:15 Disposition Disposition: Admit Clinical Impression: COPD with exacerbation Disposition: Still a Patient at [facility] Decision to Admit: Admit from ER Decision to Admit Date: 01/04/19 Decision to Admit Time: 05:19 Condition: (2) Stable Time of Disposition: 05:19 Quality - Quality Measures Quality Measures: N/A - Blood Pressure Screening Does Patient Have Any of the Following: No Blood Pressure Classification: Pre-Hypertensive BP Reading Systolic Measurement: 127 Diastolic Measurement: 78 Screening for High Blood Pressure: < Pre-Hypertensive BP, F/U Documented > [[id number]] Pre-Hypertensive Follow-up Interventions: Referral to alternative/primary care provider.
[2019-01-04 04:22] LABS: ABSOLUTE NEUTROPHIL COUNT 8.19; BASO % 0.2 % (0-6); EOS % 0.3 % (0-6); GRAN % 67.6 % (47-80); HEMATOCRIT 42.5 % (35.0-47.0); HEMOGLOBIN 13.7 gm/dl (11.6-16.0); LYMPH % 24.1 % (16-45); MEAN CELL VOLUME 101.9 fl (81-97); MEAN CORPUSCULAR HEMOGLOBIN 32.9 pg (27-33); MEAN CORPUSCULAR HGB CONC 32.2 g/dl (32-36); MEAN PLATELET VOLUME 9.5 fl (7.4-10.4); MONO % 7.8 % (0-9); PLATELET COUNT 257 K/uL (130-400); RED BLOOD COUNT 4.17 M/uL (3.80-5.40); RED CELL DISTRIBUTION WIDTH 12.1 % (11.5-14.5); WHITE BLOOD COUNT W/O DIFF 12.1 K/uL (4.2-12.2)
[2019-01-04 04:29] LABS: ARTERIAL BLD GAS O2 SATURATION 97.5 % (95-98); ARTERIAL BLOOD GAS HCO3 31.7 mmol/L (18-23); CARBOXYHEMOGLOBIN 3.6 % (0-1.5); METHEMOGLOBIN 0.2 % (0.0-1.5); O2 HEMOGLOBIN 93.8 % vol (94-99); TOTAL HEMOGLOBIN 12.9 g/dl (11.6-16)
[2019-01-04 04:30] LABS: ALLEN TEST PASS; ARTERIAL BLOOD GAS PCO2 87.9 mmHg (35-48); ARTERIAL BLOOD GAS pH 7.18 (7.35-7.45)
[2019-01-04 04:34] LABS: INR 1.2; PARTIAL THROMBOPLASTIN TIME 28.9 SECONDS (24.5-39.1); PROTHROMBIN TIME (PATIENT) 12.4 SECONDS (9.5-12.1)
[2019-01-04 04:36] LABS: BLOOD UREA NITROGEN 15 mg/dL (8-23); CREATININE 0.6 mg/dL (0.5-0.9); EST GLOMERULAR FILTRATION RATE > 60 mL/min; TOTAL PROTEIN 7.1 g/dL (6.6-8.7)
[2019-01-04] MEDS ORDERED: ONDANSETRON HCL IV 4 MG/2 ML VIAL IVP ONE (04:36)
[2019-01-04 04:38] LABS: GLUCOSE,RANDOM 179 mg/dL (74-109)
[2019-01-04 04:41] LABS: ALB/GLOB RATIO 1.8 (1.1-1.8); ALBUMIN 4.6 g/dL (4.0-5.0); ALKALINE PHOSPHATASE 66 U/L (35-104); ALT/SGPT 20 U/L (<33); AST/SGOT 26 U/L (10.0-35.0)
[2019-01-04] MEDS ORDERED: ALBUTEROL (0.5% CONCENTRATED) 2.5 MG/0.5 ML VIAL.NEB INH ONE ×2 (04:51→04:57)
[2019-01-04] MEDS ORDERED: ALBUTEROL SULFATE (0.083%) 2.5 MG/3 ML NEB INH ONE (04:57)
[2019-01-04 05:17] LABS: ARTERIAL BLD GAS O2 SATURATION 95.8 % (95-98); ARTERIAL BLOOD GAS HCO3 30.4 mmol/L (18-23); ARTERIAL BLOOD GAS PCO2 70.1 mmHg (35-48); ARTERIAL BLOOD GAS pH 7.26 (7.35-7.45); CARBOXYHEMOGLOBIN 3.3 % (0-1.5); METHEMOGLOBIN 0.7 % (0.0-1.5); O2 HEMOGLOBIN 92.1 % vol (94-99); TOTAL HEMOGLOBIN 12.5 g/dl (11.6-16)
[2019-01-04 05:18] LABS: ALLEN TEST PASS
[2019-01-04] MEDS ORDERED: ACETAMINOPHEN 325 MG TAB PO PRN (05:59)
[2019-01-04] MEDS ORDERED: BUDESONIDE 0.5 MG/2 ML INH SCH (06:00)
[2019-01-04] MEDS: AZITHROMYCIN 500 MG in 0.9 % SODIUM CHLORIDE 250ML 250 ML IVPB SCH (07:02)
[2019-01-04 07:17] LABS: ARTERIAL BLD GAS O2 SATURATION 96.8 % (95-98); ARTERIAL BLOOD GAS BASE EXCESS 2.7 mmol/L (-2 - 3); ARTERIAL BLOOD GAS HCO3 31.3 mmol/L (18-23); ARTERIAL BLOOD GAS pH 7.26 (7.35-7.45); CARBOXYHEMOGLOBIN 2.8 % (0-1.5); METHEMOGLOBIN 1.3 % (0.0-1.5); O2 HEMOGLOBIN 92.8 % vol (94-99); TOTAL HEMOGLOBIN 12.5 g/dl (11.6-16)
[2019-01-04 07:21] LABS: ARTERIAL BLOOD GAS PCO2 72.5 mmHg (35-48)
[2019-01-04 07:23] LABS: ALLEN TEST PASS
[2019-01-04] MEDS: METHYLPREDNISOLONE PF 125MG/VIAL IVP SCH ×3 (07:38→21:09)
--- NOTE | 2019-01-04 07:46 | RADIOLOGY REPORT ---
EXAM: CHEST, ONE VIEW HISTORY: SHORTNESS OF BREATH. HYPOXIA. TECHNIQUE: A single mobile semi-erect view of the chest was obtained. Comparison: Portable chest dated 10/16/17. FINDINGS: The heart is not enlarged and the pulmonary vasculature is nondilated. The lungs are hyperinflated consistent with COPD. Mild lateral costophrenic angle blunting is noted both on the right and the left. This may just relate to hyperinflation of the lungs or scarring though tiny effusions would be difficult to exclude. Overall this pattern is not significantly changed. There are degenerative changes scattered within the visualized spine with mild dextroconvex curvature involving the mid to lower thoracic portions. There is moderate gaseous distention of the stomach. IMPRESSION: HYPERINFLATION OF THE LUNGS CONSISTENT WITH COPD. MILD BILATERAL COSTOPHRENIC ANGLE BLUNTING, DISCUSSED ABOVE. JOB NUMBER: [id number] [facility]
[2019-01-04] MEDS: IPRATROPIUM/ALBUTEROL (0.5MG/3MG) NEB INH SCH ×5 (08:12→21:35)
[2019-01-04] MEDS: BUDESONIDE 0.5 MG/2 ML INH SCH ×2 (10:21→21:35)
[2019-01-04] MEDS: MAGNESIUM OXIDE 400 MG TABLET PO SCH (10:59)
[2019-01-04] MEDS: ASPIRIN 81 MG TABEC PO SCH (10:59)
[2019-01-04] MEDS: ENOXAPARIN 40 MG/0.4 ML SYR SC SCH (11:00)
[2019-01-04] MEDS: ALBUTEROL SULFATE (0.083%) 2.5 MG/3 ML NEB INH PRN ×2 (11:31→16:29)
[2019-01-04] MEDS ORDERED: 0.9 % SODIUM CHLORIDE 1000ML 1,000 ML IV ONE (13:02)
[2019-01-04] MEDS ORDERED: LORAZEPAM 2 MG/ML VIAL IV PRN (13:15)
[2019-01-04] MEDS: CEFTRIAXONE 1GM/50ML BAG 1 GM/50 ML BAG IVPB SCH (17:57)
[2019-01-04] MEDS: GUAIFENESIN 600 MG TABCR PO SCH ×2 (18:12→21:01)
[2019-01-04] MEDS: ALBUTEROL (0.5% CONCENTRATED) 2.5 MG/0.5 ML VIAL.NEB INH PRN (18:22)
[2019-01-04] MEDS: SIMVASTATIN 10MG TABLET PO SCH (21:09)
[2019-01-05] MEDS: METHYLPREDNISOLONE PF 125MG/VIAL IVP SCH ×3 (05:41→21:29)
[2019-01-05] MEDS: CEFTRIAXONE 1GM/50ML BAG 1 GM/50 ML BAG IVPB SCH ×2 (05:42→18:21)
[2019-01-05] MEDS: IPRATROPIUM/ALBUTEROL (0.5MG/3MG) NEB INH SCH ×5 (06:01→22:22)
[2019-01-05] MEDS: AZITHROMYCIN 500 MG in 0.9 % SODIUM CHLORIDE 250ML 250 ML IVPB SCH (06:19)
[2019-01-05] MEDS: ALBUTEROL SULFATE (0.083%) 2.5 MG/3 ML NEB INH PRN ×2 (07:26→11:14)
[2019-01-05] MEDS: GUAIFENESIN/D-METH. 10 ML UDC PO PRN ×3 (07:49→18:22)
[2019-01-05] MEDS: ALBUTEROL (0.5% CONCENTRATED) 2.5 MG/0.5 ML VIAL.NEB INH PRN (09:21)
[2019-01-05] MEDS: BUDESONIDE 0.5 MG/2 ML INH SCH (09:21)
[2019-01-05 09:46] LABS: BLOOD UREA NITROGEN 17 mg/dL (8-23); CREATININE 0.7 mg/dL (0.5-0.9); EST GLOMERULAR FILTRATION RATE > 60 mL/min
[2019-01-05 09:48] LABS: GLUCOSE,RANDOM 148 mg/dL (74-109)
[2019-01-05] MEDS: ENOXAPARIN 40 MG/0.4 ML SYR SC SCH (10:59)
[2019-01-05] MEDS: MAGNESIUM OXIDE 400 MG TABLET PO SCH (11:00)
[2019-01-05] MEDS: GUAIFENESIN 600 MG TABCR PO SCH ×2 (11:00→21:29)
[2019-01-05] MEDS: ASPIRIN 81 MG TABEC PO SCH (11:00)
[2019-01-05] MEDS: 0.9 % SODIUM CHLORIDE 1000ML 1,000 ML IV PRN (14:29)
[2019-01-05] MEDS: BUDESONIDE 0.5 MG/2 ML INH PRN ×2 (18:13→22:22)
[2019-01-05] MEDS: SIMVASTATIN 10MG TABLET PO SCH (21:29)
[2019-01-06] MEDS: 0.9 % SODIUM CHLORIDE 1000ML 1,000 ML IV PRN (00:45)
[2019-01-06] MEDS: ALBUTEROL SULFATE (0.083%) 2.5 MG/3 ML NEB INH PRN (03:49)
[2019-01-06] MEDS: ALBUTEROL (0.5% CONCENTRATED) 2.5 MG/0.5 ML VIAL.NEB INH PRN ×2 (03:49→13:18)
[2019-01-06] MEDS: IPRATROPIUM/ALBUTEROL (0.5MG/3MG) NEB INH SCH ×5 (06:08→22:17)
[2019-01-06] MEDS: CEFTRIAXONE 1GM/50ML BAG 1 GM/50 ML BAG IVPB SCH ×2 (06:15→18:30)
[2019-01-06] MEDS: METHYLPREDNISOLONE PF 125MG/VIAL IVP SCH (06:16)
[2019-01-06] MEDS: AZITHROMYCIN 500 MG in 0.9 % SODIUM CHLORIDE 250ML 250 ML IVPB SCH (07:00)
[2019-01-06] MEDS ORDERED: 0.9 % SODIUM CHLORIDE 1000ML 1,000 ML IV ONE (07:11)
--- NOTE | 2019-01-06 07:27 | Inpatient Certification ---
Inpatient Certification Admit to inpatient care: Based on my medical assessment, after consideration of patient's risk factors (age, co-morbidities and patient presenting symptoms and acuity), I expect that this patient will remain in the hospital greater than or equal to two midnights and that the services needed warrant inpatient care because:respiratory failure Patient Risk Factors: [copd ,tobacco use] Estimated length of stay: [4 days] The patient may reasonably be expected to be discharged or transferred to a hospital within 96 hours after admission to [facility]. Services needed: [bipap, IV solumedrol, oxygen breathing treatments IV antibiotics] Post hospital care (if known): [] I certify that my determination is in accordance with my understanding of Medicare requirements for reasonable and necessary inpatient services. 01/06/19 07:26
[2019-01-06 07:59] LABS: ARTERIAL BLD GAS O2 SATURATION 97.6 % (95-98); ARTERIAL BLOOD GAS BASE EXCESS 5.7 mmol/L (-2 - 3); ARTERIAL BLOOD GAS HCO3 30.6 mmol/L (18-23); ARTERIAL BLOOD GAS PCO2 47.8 mmHg (35-48); ARTERIAL BLOOD GAS pH 7.42 (7.35-7.45); CARBOXYHEMOGLOBIN 2.5 % (0-1.5); O2 HEMOGLOBIN 96.5 % vol (94-99); TOTAL HEMOGLOBIN 10.8 g/dl (11.6-16)
[2019-01-06 08:04] LABS: METHEMOGLOBIN 0.5 % (0.0-1.5)
[2019-01-06 08:05] LABS: ALLEN TEST PASS
[2019-01-06] MEDS: PREDNISONE 20 MG TAB PO SCH ×2 (09:34→18:30)
[2019-01-06] MEDS: GUAIFENESIN 600 MG TABCR PO SCH ×2 (09:34→21:19)
[2019-01-06] MEDS: MAGNESIUM OXIDE 400 MG TABLET PO SCH (09:34)
[2019-01-06] MEDS: GUAIFENESIN/D-METH. 10 ML UDC PO PRN ×4 (09:34→22:13)
[2019-01-06] MEDS: ENOXAPARIN 40 MG/0.4 ML SYR SC SCH (09:35)
[2019-01-06] MEDS: ASPIRIN 81 MG TABEC PO SCH (09:35)
[2019-01-06] MEDS: BUDESONIDE 0.5 MG/2 ML INH PRN ×2 (10:15→22:16)
[2019-01-06] MEDS: BENZONATATE 100 MG CAPSULE PO PRN ×2 (13:21→22:13)
[2019-01-06] MEDS: SIMVASTATIN 10MG TABLET PO SCH (21:19)
[2019-01-07] MEDS: GUAIFENESIN/D-METH. 10 ML UDC PO PRN ×2 (04:44→13:45)
[2019-01-07] MEDS: CEFTRIAXONE 1GM/50ML BAG 1 GM/50 ML BAG IVPB SCH (05:01)
[2019-01-07] MEDS: AZITHROMYCIN 500 MG in 0.9 % SODIUM CHLORIDE 250ML 250 ML IVPB SCH (06:04)
[2019-01-07] MEDS: IPRATROPIUM/ALBUTEROL (0.5MG/3MG) NEB INH SCH ×3 (06:14→13:44)
[2019-01-07] MEDS: BENZONATATE 100 MG CAPSULE PO PRN (08:04)
[2019-01-07] MEDS: PREDNISONE 20 MG TAB PO SCH (08:04)
--- NOTE | 2019-01-07 08:20 | History and Physical Report ---
DATE: 01/04/2019 at 11:48 a.m. CHIEF COMPLAINT: Dyspnea, respiratory failure. HISTORY OF PRESENT ILLNESS: This 68-year-old female states that she has been short of breath over the last 2 days but much worse in the last 12 hours. She came into the emergency department about 3 a.m. very short of breath by ambulance requiring Solu-Medrol and a breathing treatment in the ambulance. Her pulse ox was low. Came up to 87%. Her initial pulse ox was 87%. The work of breathing was excessive. She is working at 35 breaths a minute. She is placed on BiPAP and evaluated by Dr. Martel with a diagnosis of COPD exacerbation, respiratory failure, and acute bronchitis. She was given IV Rocephin, IV azithromycin, DuoNeb treatments, and Solu-Medrol and placed on BiPAP. PAST MEDICAL HISTORY: COPD, tobacco use disorder, still smoking, no drugs or alcohol use. She has home oxygen at 2L/min nasal cannula. GERD, history of polyps, weight loss 15 pounds over the last 2 years, arthritis. PAST SURGICAL HISTORY: Hysterectomy, bunion surgery, laparoscopic endometriosis, tonsils and adenoids removed, colonoscopy. MEDICATIONS: 1. Melatonin 3 mg at h.s. 2. Calcium 1000 mg daily. 3. Symbicort 160/4.5 two puffs b.i.d. 4. Aspirin 81 mg daily. 5. ProAir 2 puffs every 4 hours but she was probably using it every 2 hours at home. 6. Spiriva 2 puffs daily. 7. [place] 3 fatty acids 1 a day. 8. Calcium and vitamins 1 a day. 9. Magnesium oxide 250 daily. 10. Lovastatin 20 mg at h.s. 11. Vitamin D3, 1000 units daily. ALLERGIES: No known drug allergies. FAMILY/PSYCHOSOCIAL HISTORY: She still smokes. No drugs or alcohol use. No significant family history. REVIEW OF SYSTEMS: HEENT: She denies any upper respiratory infection symptoms, cough, cold, or congestion. She developed a dry cough 48 hours prior to coming to the emergency department. Cardiovascular: No chest pain or palpitations but very short of breath. Respiratory: See Chief Complaint. Short of breath. Smoker and has COPD on home oxygen 2L/min nasal cannula. Gastrointestinal: No nausea, vomiting, diarrhea, black stools, or bloody stools. Genitourinary: No dysuria, hematuria, frequency, or burning on urination. Musculoskeletal: She has arthritis but no problems moving her arms and legs. Neurological: No CVA, paralysis, or paresthesias. 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 Endocrine: No diabetes or thyroid disease. Integument: No rash, ulcers, change in moles, or yellow skin. PHYSICAL EXAMINATION: VITALS: Height 5 feet 4 inches, weight 140 pounds. In the emergency department, temperature 97.3, regular pulse, blood pressure 107/44, respiratory rate 35 breaths a minute. She had pursed-lip breathing and retracting. She was placed on BiPAP when she first came into the emergency department, which helped tremendously on her work of breathing. Dropped down to 20 breaths a minute. Her most recent set of vitals who pulse 108, respiratory rate 22, pulse ox 90% on BiPAP, blood pressure 107/44. HEENT: Pupils are equal, round, and reactive to light and accommodation. Extraocular muscles are intact. Throat is clear. Nose is clear. Tympanic membranes are chandra. NECK: Supple. No jugular venous distention. No hepatojugular reflux. No carotid bruits. Thyroid is smooth. CARDIOVASCULAR: Regular rate and rhythm without murmurs, clicks, rubs, or gallops. RESPIRATORY: Diminished breath sounds bilaterally. ABDOMEN: Soft, nontender. No hepatosplenomegaly, no masses, no tenderness. Bowel sounds are active. No bruits. EXTREMITIES: No pitting edema. No cyanosis, no clubbing. Full range of motion. Peripheral pulses are good. BREASTS: Exam deferred. GYNECOLOGICAL: Exam deferred. RECTAL: Exam deferred. NEUROLOGIC: Cranial nerves II-XII intact. No gross defects. Sensation normal, strength normal. Deep tendon reflexes equal bilaterally with Babinski negative. MENTAL STATUS: Alert and oriented x3. IMPRESSION: 1. Respiratory failure. 2. Chronic obstructive pulmonary disease exacerbation. 3. Acute bronchitis. 4. Tobacco use disorder. 5. Hypercholesterolemia. PLAN: BiPAP. Oxygen replacement. Oxygen therapy. Solu-Medrol IV. IV Rocephin 1 g q.12 h. Azithromycin 500 daily. Fluid hydration at 100 mL/hour. BiPAP. MTDD
[2019-01-07] MEDS: ALBUTEROL SULFATE (0.083%) 2.5 MG/3 ML NEB INH PRN (08:59)
[2019-01-07] MEDS: ASPIRIN 81 MG TABEC PO SCH (09:44)
[2019-01-07] MEDS: GUAIFENESIN 600 MG TABCR PO SCH (09:44)
[2019-01-07] MEDS: MAGNESIUM OXIDE 400 MG TABLET PO SCH (09:44)
[2019-01-07] MEDS: ENOXAPARIN 40 MG/0.4 ML SYR SC SCH (09:49)
[2019-01-07] MEDS ORDERED: FUROSEMIDE 20 MG TABLET PO SCH (10:00)
[2019-01-07] MEDS ORDERED: AZITHROMYCIN 500 MG TABLET PO SCH (10:00)
[2019-01-07] MEDS: BUDESONIDE 0.5 MG/2 ML INH PRN (10:07)
--- NOTE | 2019-01-08 08:00 | Discharge Summary ---
DISCHARGE DIAGNOSES: 1. Severe chronic obstructive pulmonary disease. 2. Respiratory failure. Unable to get off BiPAP. 3. Bronchitis. 4. Tobacco use disorder. 5. Hypercholesterolemia. ATTENDING PHYSICIAN: Raulito Moore DO REASON FOR HOSPITALIZATION: Dyspnea, respiratory failure. This 68-year-old female states she was short of breath over the last 2 days prior to coming to the emergency department, much worse in the last 12 hours. She came to the emergency department at 3 a.m. very short of breath by ambulance requiring Solu- Medrol and breathing treatments. She had a low pulse ox 87% and she was evaluated in the emergency department by Dr. Martel, placed on BiPAP, admitted to the hospital to my service at about 3 or 4 in the morning. SIGNIFICANT FINDINGS: Chest x-ray showed hyperinflation of the lung consistent with COPD, mild bilateral costophrenic angle blunting, no significant infiltrate. Blood gases were bad when she first came in. The blood gases initially were 7.18. Improved after an hour of treatment in the emergency department to 7.26. Her pH the next morning was 7.26. Initial bicarb was 87.9%, dropped to about 72%. After 2 days of BiPAP, pH was 7.42. The CO2 was 47, PO2 was 103. She is much improved; however, every time she exercised, she got very short of breath and required more BiPAP. THERAPY PROVIDED: She was given BiPAP, started on Rocephin and azithromycin IV and Solu-Medrol 60 mg q.8 h. Breathing treatments. She seemed to be improving until the day of transfer where she was off BiPAP the night before completely and then the day of transfer she required 3-4 hours of BiPAP during the night and whenever she got up to go to the bathroom, she became so short of breath she had to go back on BiPAP. However, overall she seemed better but she was failing getting back to her own exercise tolerance. Consult with Pulmonology who agreed that transferring up to [facility] for further evaluation and treatment, possible bronchoscopy, and ICU care was necessary to get her off the BiPAP and functioning at home. At that point, patient was transferred to [facility] for further care with Dr. Marley. CONDITION ON DISCHARGE: At transfer time, she was stable. Maintaining her pulse ox at 92% on 4L O2. The patient was transferred stable but guarded condition because of her underlying disease. The patient is transferred to [facility]. [facility]
--- NOTE | 2019-01-09 11:20 | Medical Records Consult ---
DATE OF CONSULTATION: 01/07/2019 REASON FOR CONSULTATION: COPD exacerbation. HISTORY OF PRESENT ILLNESS: This is a 68-year-old woman who has been long life smoker and she still smokes to the date before admission. She has chronic respiratory failure on two liters nasal cannula 05/12. She also has been taking Spiriva two puffs once a day in addition to Symbicort 160 strength two puffs twice a day. She came to the Emergency Room on 01/04/19 and at that time she was found to have a pH of 7.18, and a PCO2 of 122. She was started on BI- PAP 25/11 and she was kept until the last ABG's PCO2 of 72, PO2 of 86 and BI-PAP 25/11 with a 32% FIO2. She continued to be out of breath. She has been on BI- PAP the whole time. She had a chest x-ray showing no signs of pneumonia. The patient was given IV Ceftriaxone and IV Erythromycin in addition to bronchodilators with Solu-Medrol. While she was here she became severe dependent on the BI-PAP. She cannot take it off long enough to carry on conversation. Today she felt better, but she has an extensive amount of sputum production. She feels the sputum is building up in the throat and she cannot cough it up. No fever. No chills. No night sweating. No recent travel out of the critical access hospital. She has not been on mechanical ventilation before and she has not seen a assembler trim in the past. PAST MEDICAL HISTORY: COPD, smoker, and insomnia. MEDICATIONS: Melatonin, calcium, Symbicort, Spiriva, aspirin, and Lovastatin. PAST SURGICAL HISTORY: Hysterectomy, and tonsillectomy. ALLERGIES: No known drug allergies. FAMILY HISTORY: No lung disease in the family. SOCIAL HISTORY: She still smokes a few cigarettes a day. She has more than a 40 pack year history of smoking. No alcohol. No IV drug abuse. REVIEW OF SYSTEMS: General: She has had significant weight loss over the last few years. No fever. No chills. No night sweating. HEENT: No headache. No blurred vision. No nausea or vomiting. No hearing loss. Chest: She has had chest pain from coughing, acutely pleuritic. She does have tightness in the chest and decreased air movement gasping for air. No palpitations. No TB exposure. No hemoptysis. Coughing mostly dry thick sputum, not able to bring it up. GI: No diarrhea. No constipation. No hematochezia. : No dysuria. No hematuria. No pyuria. Neurological: She has no focal weakness. No headache. No double vision. PHYSICAL EXAMINATION: She appears to be 140 pounds, saturation 97% on two liters nasal cannula, respiratory rate is 30, blood pressure 107/44, temperature 97.3. HEENT: Normocephalic. Pupils are equal, reactive to light and accommodation. Extraocular muscles are intact. NECK: Supple. No jugular venous distention. No carotid bruits. The thyroid is not enlarged. CARDIOVASCULAR: S1, S2, regular rate and rhythm without murmurs are appreciated. LUNGS: Decreased air movements, hyperinflated chest. Barrel chest. Decreased air movements bilateral. No dullness to percussion. No wheezing. ABDOMEN: Soft, nontender. Bowel sounds are present. No hepatosplenomegaly. EXTREMITIES: No edema. No clubbing. No cyanosis. NEUROLOGICAL: Cranial nerves II through XII intact. Sensation and motor strengths appear to be intact bilaterally. IMPRESSION: 1. ACUTE ON CHRONIC HYPOXIC AND HYPERCAPNIC RESPIRATORY FAILURE. 2. COPD WITH EXACERBATION. 3. ACUTE TRACHEAL BRONCHITIS, IT APPEARS TO BE BACTERIAL. 4. SMOKING. 5. PULMONARY CACHEXIA. PLAN: 1. Continue COPD pathway with IV Solu-Medrol. Continue on Azithromycin and Ceftriaxone. Chest x-ray showing no signs of focal pneumonia. This is very likely to be a bacterial cause of COPD exacerbation due to tracheal bronchitis. We need to obtain a sputum culture. I will do a CT scan of the chest without contrast, we will schedule it after we transfer the patient to [facility]. She may need to have a bronchoscopy to examine the airway since she has a mucus plug and that is causing her to not be able to tolerate the BI-PAP very well. The patient would benefit from smoking cessation program and lung rehab as an outpatient. 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 She will need to have a high protein diet with Ensure to use three bottles a day, one with each meal. She needs to maximize her outpatient inhalation treatment after she quits smoking. 2. GR prophylaxis. 3. The patient is a candidate for CT scan for the purpose of lung screening program. She is also noted to have a CAT scan which images were reviewed back in 2018 and that is showing no suspicious lower lung nodules. She will have to have a CAT scan again this year. 4. She does have severe hypercapnia and she may be a candidate for BI-PAP at home. She will need to have an overnight pulse ox on two liters of oxygen to see if she has symptoms consistent with oxygen desaturation at nighttime then she may qualify for BI-PAP at home to use at night only. 5. I called Dr. Roa at [facility] to be admitted to him and I will review the patient at [facility]. Thank you very much Dr. Moore for giving me the opportunity to take care of this patient. We will continue to follow-up with you. JOB NUMBER: [id number]
== END 2019-01-07 15:59 | disposition short-term general hospital (02) | DRG 190 ==
LOC: ER 04:01 → MEDSURG 05:50 → UNDOADMIN 05:50 → MEDSURG 06:08
PROVIDERS: ADMIT Emergency Medicine; ATTEND Emergency Medicine
DX: J44.1 Chronic obstructive pulmonary disease with (acute) exacerbation (principal); J96.90 Respiratory failure, unspecified, unspecified whether with hypoxia or hypercapnia; R06.00 Dyspnea, unspecified; E78.00 Pure hypercholesterolemia, unspecified; R05 Cough; M19.90 Unspecified osteoarthritis, unspecified site; K21.9 Gastro-esophageal reflux disease without esophagitis; F17.210 Nicotine dependence, cigarettes, uncomplicated
CPT/HCPCS: 85025; 85730; 85610; 82375 ×2; 80053; 82803 ×2; 84484; 71045; J2405; J0696; 36600; 80048; 82800; 93005; 93010; 94640; 94660; 94667; 94761; 96365; 96374; 99223; 99233; 99239; 99285; J0456; J1650; J2930; J7030; J7050; J7512; J7613